=== PATIENT | female | born 1990 | race Caucasian/White ===

== ENCOUNTER → 2018-12-05 | Outpatient (CLI) | payer BC, MEDICAID ==
--- NOTE | 2018-12-05 11:10 | NM ---
EXAM DESCRIPTION: Hepatobiliar w/CCK CLINICAL HISTORY: RIGHT UPPER QUADRANT PAIN COMPARISON: None Available RADIOPHARMACEUTICAL: 8.5 mCi technetium 99m Choletec IV. 1.2 mcg of sincalide was given IV to induced gallbladder emptying. FINDINGS: There is prompt appropriate accumulation of the radiopharmaceutical by the liver with excretion into the biliary ductal system, gallbladder, and small bowel in and appropriate time frame. Gallbladder ejection fraction is assessed over 30 min time period following sincalide administration and shows a gallbladder ejection fraction of 0.0%. Patient experienced mild nausea with CCK administration. IMPRESSION: Normal appearance of the gallbladder on hepatobiliary scan with normal progress of activity through the liver, biliary tree and small bowel. Gallbladder does not contract after CCK administration indicating gallbladder dysfunction. Electronically signed by: Renzo Rodríguez MD 12/05/2018 11:08 AM CDT
== END ==
LOC: NM 08:51
PROVIDERS: ATTEND Family Medicine
DX: R10.11 Right upper quadrant pain (principal)
CPT/HCPCS: 78227; A9537